=== PATIENT | female | born 1955 | race Caucasian/White ===

== ENCOUNTER 2024-03-21 18:14 | Inpatient (IN) | payer MEDICARE ==
[2024-03-21 20:07] VITALS: BMI 28.0
[2024-03-21] MEDS ORDERED: Albuterol 200 PUFF (6.7GM INHALER) INH PRN (21:04)
[2024-03-21] MEDS: HYDROcodone/Acetaminophen 10/325 mg Tablet PO PRN (22:05)
[2024-03-21] MEDS: traZODone HCl 50 MG TAB PO PRN (22:05)
[2024-03-22 06:18] VITALS: BMI 28.4
[2024-03-22] MEDS: ALPRAZolam 0.5 MG TAB PO SCH (09:16)
[2024-03-22] MEDS: Clopidogrel Bisulfate 75 MG TAB PO SCH (09:17)
[2024-03-22] MEDS: Levothyroxine Sodium 25 MCG TAB PO SCH (09:17)
[2024-03-22] MEDS: Amlodipine 5 MG TAB PO SCH (09:17)
[2024-03-22] MEDS: Pantoprazole DR 40 MG TAB PO SCH (09:17)
[2024-03-22] MEDS: DULoxetine 30 MG CAP PO SCH (09:18)
[2024-03-22] MEDS: Enoxaparin 40 MG (0.4 mL) SYRINGE SC SCH (09:18)
[2024-03-22] MEDS: Ondansetron ODT 4 MG TAB PO PRN (15:55)
[2024-03-22] MEDS: HYDROcodone/Acetaminophen 10/325 mg Tablet PO PRN (20:21)
[2024-03-22] MEDS: Atorvastatin Calcium 10 MG TAB PO SCH (20:23)
[2024-03-22] MEDS: Mirtazapine 15 MG TAB PO SCH (20:23)
[2024-03-22] MEDS: Nystatin Cream 15 GM TUBE TOP SCH (20:25)
[2024-03-23] MEDS: Levothyroxine Sodium 25 MCG TAB PO SCH (05:34)
[2024-03-31] MEDS: Acetaminophen 325 MG TAB PO PRN (16:02)
[2024-04-01] MEDS: DULoxetine 20 MG CAP PO SCH ×2 (10:34→21:23)
[2024-04-01] MEDS: DULoxetine 30 MG CAP PO SCH (21:23)
[2024-04-02] MEDS: HYDROcodone/Acetaminophen 10/325 mg Tablet PO PRN (13:48)
[2024-04-02] MEDS: busPIRone HCl 5 MG TAB PO SCH ×2 (13:49→21:30)
[2024-04-02] MEDS: Acetaminophen 500 MG TAB PO SCH (17:39)
[2024-04-04] MEDS ORDERED: Mag-Al Plus 1200/1200/120 MG (30 mL) UDCUP PO PRN (07:31)
[2024-04-04] MEDS: Mag-Al 1200 mg/1200 mg/30 ML UDCUP ONE (07:58)
[2024-04-05 08:05] LABS: Hematocrit 45.2 % (36.0-47.0); Hemoglobin 12.5 g/dL (12.0-16.0); Mean Corpuscular HGB CONC 27.7 g/dL (32.0-36.0); Mean Corpuscular Hemoglobin 22.6 pg (27.0-31.0); Mean Corpuscular Volume 81.7 fl (78.0-98.0); Mean Platelet Volume 5.3 fL (7.4-10.4); Platelet Count 680 10x3/uL (130-400); RBC Distribution Width 15.7 % (11.5-14.5); Red Blood Cell (RBC) Count 5.53 mill/uL (4.20-5.40); White Blood Cell (WBC) Count 7.9 10x3/uL (4.8-10.8)
[2024-04-05 08:29] LABS: Anion Gap 17 mmol/L (10-20); BUN (Urea Nitrogen) 13 mg/dL (9.8-20.1); Calc. Creatinine Clearance 75 mL/min (70-130); Calcium 10.2 mg/dL (7.8-10.44); Carbon Dioxide 23 mmol/L (23-31); Chloride 102 mmol/L (98-107); Estimated GFR 91; Glucose 142 mg/dL (80-115); Potassium 5.2 mmol/L (3.5-5.1); Sodium 137 mmol/L (136-145)
[2024-04-05] MEDS: ALPRAZolam 0.5 MG TAB PO PRN (11:50)
[2024-04-06] MEDS: Simethicone Chewable 80 MG TAB PO PRN (09:27)
[2024-04-06 10:22] LABS: Anion Gap 17 mmol/L (10-20); BUN (Urea Nitrogen) 17 mg/dL (9.8-20.1); Calc. Creatinine Clearance 73 mL/min (70-130); Calcium 9.7 mg/dL (7.8-10.44); Carbon Dioxide 20 mmol/L (23-31); Chloride 101 mmol/L (98-107); Estimated GFR 88; Glucose 140 mg/dL (80-115); Potassium 4.2 mmol/L (3.5-5.1); Sodium 134 mmol/L (136-145)
[2024-04-09] MEDS ORDERED: Mag-Al 1200 mg/1200 mg/30 ML UDCUP PO PRN (14:25)
[2024-04-10 07:16] VITALS: TEMP 97.6
[2024-04-10 08:27] VITALS: BP 110/64
== END 2024-04-10 12:00 | disposition home or self-care (01) | DRG 947 ==
LOC: MADMS 19:53
PROVIDERS: ADMIT Family Medicine; ATTEND Family Medicine
DX: R53.1 Weakness (principal); K65.1 Peritoneal abscess; R53.81 Other malaise; I10 Essential (primary) hypertension; I25.10 Atherosclerotic heart disease of native coronary artery without angina pectoris; F41.8 Other specified anxiety disorders; E03.9 Hypothyroidism, unspecified; R13.12 Dysphagia, oropharyngeal phase; E78.5 Hyperlipidemia, unspecified; Z86.73 Personal history of transient ischemic attack (TIA), and cerebral infarction without residual deficits; Z88.5 Allergy status to narcotic agent; Z88.8 Allergy status to other drugs, medicaments and biological substances; Z79.899 Other long term (current) drug therapy; Z79.51 Long term (current) use of inhaled steroids; Z86.16 Personal history of COVID-19; Z90.49 Acquired absence of other specified parts of digestive tract; Z98.890 Other specified postprocedural states; Z95.1 Presence of aortocoronary bypass graft; Z93.3 Colostomy status
CPT/HCPCS: 36415; 80048; 84443; 85027; J1650; Q0162